=== PATIENT | female | born 1985 | race Caucasian/White ===

== ENCOUNTER 2025-01-08 00:08 | Emergency (ER) | payer OTHER, SELFPAY ==
--- OUTSIDE RECORDS SUMMARY | 2025-01-08 00:10 | XMS_ITS | Referral Summary ---
Author Organization [facility] Address [address] [place] [address] Care Team Providers Care Carton Folder Name Role Phone Lacy Erickson MD Primary Care Provider Encounters Date Type Department Care Team Description 01/01/2025 Results Follow-Up [facility] Primary Care [address] [place] [phone] Lacy Erickson MD 11/20/2024 Telephone [facility] Primary Care [address] [place] [phone] Lacy Erickson MD Forms Request from Last 3 Months Allergies No known active allergies Medications levonorgestreL (MIRENA) IUD 1 each by intrauterine route once 9 Active furosemide (LASIX) 20 mg tablet Take 1 tablet (20 mg total) by mouth daily as needed (swelling) 30 tablet 1 4 Active Additional Information Patient not taking.Reported on 06/19/2024 amLODIPine (NORVASC) 5 mg tablet Take 1 tablet (5 mg total) by mouth daily 90 tablet 1 4 Active Active Problems Problem Noted Date Diagnosed Date Hypertension, essential 06/11/2024 PFO (patent foramen ovale) 04/08/2019 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 Discussed diet and exercise Feels safe at home Discussed skin cancer prevention and screening: sees eyeglass frames inspector Check labs Vaccinations UTD Class 1 obesity due to exces s calories without serious comorbidity with body mass index (BMI) of 31.0 to 31.9 in adult 04/05/2021 High-risk 01/17/2012 12/11/19 24 12/05/2010 12/11/2023 Immunizations Immunization Administration Dates Next Due Influenza, Quadrivalent, Suzi l Culture-based MDCK, Preservative Free, Antibiotic Free, Intramuscular 08/12/2023 Influenza, Quadrivalent, Spl it, Preservative Free, Intramuscular 08/18/2022,10/03/2021,07/22/2020,08/19 Influenza, Trivalent, IM (MDV) 09/21/2012 Influenza, Trivalent, Preser vative Free, Intramuscular 07/03/2016 Influenza, Unspecified 07/15/2023 PPD TEST 04/05/2021 Tdap 08/02/2016,08/10/2012,05/24/2011 Social History Tobacco Use Types Packs/Day Years Used Date Smoking Tobacco: Never Cigarettes Smokeless Tobacco: Never Tobacco Cessation:Counseling Given: Not Answered AUDIT-C Answer Date Recorded Q1: How often do you have a drink containing alc ohol? Monthly or less 12/11/2023 Q2: How many drinks containi ng alcohol do you have on a typical day when you are drinking? 1 or 2 12/11/2023 Q3: How often do you have si x or more drinks on one occasion? Never 12/11/2023 PHQ-2 Answer Date Recorded PHQ-2 Total Score (If total score is 3 or more points, staff should administer the PHQ-9) 0 06/19/2024 Comments No Sex and Gender Information Value Date Recorded Sex Assigned at Not on file Legal Sex Female 11:10 PM PERSONAL ASSISTANT Gender Identity Female 03/29/2021 7:47 AM CDT Sexual Orientation Straight 03/29/2021 7: 47 AM CDT Last Filed Vital Signs Vital Sign Reading Time Taken Comments Blood Pressure 122/78 06/19/2024 10:38 AM CDT Pulse 56 06/19/2024 10:38 AM CDT Temperature 36.1 C (96.9 F) 06/19/2024 10:38 AM CDT Respiratory Rate 16 04/05/2021 8:34 AM CDT Oxygen Saturation 99% 06/19/2024 10:38 AM CDT Inhaled Oxygen Concentration - - Weight 98.4 kg (217 lb) 06/19/2024 10:38 AM CDT Height 175.3 cm (5' 9 ) 12/11/2023 3:41 PM PERSONAL ASSISTANT Body Mass Index 32.05 12/11/2023 3:41 PM PERSONAL ASSISTANT Plan of Treatment Not on file Procedures Procedure Name Priority Date/Time Associated Diagnosis Comments LIPID PANEL Routine 12/31/2024 12:42 PM CDT Routine general medical examination at a health care facility COMPREHENSIVE METABOLIC PANEL Routine 12/31/2024 12:42 PM CDT Routine general medical examination at a health care facility CBC WITH AUTO DIFFERENTIAL Routine 12/31/2024 12:42 PM CDT Routine general medical examination at a health care facility HM PAP SMEAR WITH HPV Routine 06/09/2024 from Last 3 Months or Most Recently Relevant to Health Maintenance Results * CBC with auto differential (12/31/2024 12:42 PM CDT) WBC 6.6 3.8 - 10.8 Thousand/u L [facility] RBC, POC 4.95 3.80 - 5.10 Million/uL [facility] Hgb 15.1 11.7 - 15.5 g/dL [facility] Hct 44.9 35.0 - 45.0 % [facility] MCV 90.7 80.0 - 100.0 fL [facility] MCH 30.5 27.0 - 33.0 pg [facility] MCHC 33.6 32.0 - 36.0 g/dL [facility] Comment: For adults, a slight decrease in the calculated MCHC value (in the range of 30 to 32 g/dL) is most likely not clinically significant; however, it should be interpreted with caution in correlation with other red cell parameters and the patient's clinical condition. Rdw 12.6 11.0 - 15.0 % [facility] Platelets 229 140 - 400 Thousand/u L [facility] MPV 11.6 7.5 - 12.5 fL [facility] Neutrophils, abs 4,039 1,500 - 7,800 cells/uL [facility] Lymphocytes, abs 1,934 850 - 3,900 cells/uL [facility] Monocyte abs 422 200 - 950 cells/uL [facility] Eosinophils, abs 152 15 - 500 cells/uL [facility] Basophils, abs 53 0 - 200 cells/uL [facility] Neutrophils 61.2 % [facility] Lymphocyte pct 29.3 % [facility] Monocytes 6.4 % [facility] Eosinophils 2.3 % [facility] Basophils 0.8 % [facility] Blood 12/31/2024 12:4 2 PM CDT 12/31/2024 12:42 PM CDT us Lacy Erickson MD LAB BLOOD ORD ERABLES Final Result [facility] [address] [place] [phone] * (ABNORMAL) Lipid panel (12/31/2024 12:42 PM CDT) [facility] Cholesterol 185 <200 mg/dL [facility] HDL 44(L) > OR = 50 mg/dL [facility] Triglycerides 126 <150 mg/dL [facility] LDL 117(H) mg/dL (calc) [facility] Comment: Reference range: <100 Desirable range <100 mg/dL for primary prevention; <70 mg/dL for patients with CHD or diabetic patients with > or = 2 CHD risk factors. LDL-C is now calculated using the Kiet-Peacock calculation, which is a validated novel method providing better accuracy than the Friedewald equation in the estimation of LDL-C. Kiet SS et al. ARIES. 2013;310(19): 9924-7096 (http://education.[employer]/faq/QVL583) Chol/HDL ratio 4.2 <5.0 (calc) [facility] Non-HDL, (LDL+VLDL) 141(H) <130 mg/dL (calc) [facility] Comment: For patients with diabetes plus 1 major ASCVD risk factor, treating to a non-HDL-C goal of <100 mg/dL (LDL-C of <70 mg/dL) is considered a therapeutic option. Blood 12/31/2024 12:4 2 PM CDT 12/31/2024 12:42 PM CDT Lacy Erickson MD LAB BLOOD ORD ERABLES Final Result [facility] [address] [place] [address] * Comprehensive metabolic panel (12/31/2024 12:42 PM CDT) [facility] Glucose 83 65 - 99 mg/dL [facility] Comment: Fasting reference interval BUN 10 7 - 25 mg/dL [facility] Creatinine 0.84 0.50 - 0.97 mg/dL [facility] eGFR 91 > OR = 60 mL/min/1.7 3m2 [facility] BUN/creat ratio SEE NOTE: 6 - 22 (calc) [facility] Comment: Not Reported: BUN and Creatinine are within reference range. Sodium 139 135 - 146 mmol/L [facility] Potassium, pl 3.8 3.5 - 5.3 mmol/L [facility] Chloride 101 98 - 110 mmol/L [facility] CO2 30 20 - 32 mmol/L [facility] Calcium 9.7 8.6 - 10.2 mg/dL [facility] Protein, sr 7.0 6.1 - 8.1 g/dL [facility] Albumin 4.5 3.6 - 5.1 g/dL [facility] GLOBULIN 2.5 1.9 - 3.7 g/dL (calc) [facility] Alb/glob ratio 1.8 1.0 - 2.5 (calc) [facility] Bilirubin, total 0.7 0.2 - 1.2 mg/dL [facility] Alk phos 84 31 - 125 U/L [facility] AST 20 10 - 30 U/L [facility] ALT (SGPT) 21 6 - 29 U/L [facility] Blood 12/31/2024 12:4 2 PM CDT 12/31/2024 12:42 PM CDT Lacy Erickson MD LAB BLOOD ORD ERABLES Final Result [facility] [address] [place] [address] * HM PAP SMEAR WITH HPV (06/09/2024) Scribed Pap Smear w/HPV Normal Historical Provider HEALTH MAINTENANCE Final Result from Last 3 Months or Most Recently Relevant to Health Maintenance Insurance [place] [facility] CHOICE PLUS Care Teams Carton Folder Relationship Specialty Start Date End Date Lacy Erickson MD [address] [place] [phone] PCP - General Internal Medicine 12/11/23
--- OUTSIDE RECORDS SUMMARY | 2025-01-08 00:11 | XMS_ITS | Encounter Summary ---
Author Organization [facility] Address [address] [place] [address] Care Team Providers Care Purchasing Coordinator Name Role Phone Lacy Erickson MD Primary Care Provider Encounter Details Date Type Department Care Team (Late st Contact Info) Description 01/01/2025 Results Follow-Up [facility] Primary Care [address] [place] [phone] Lacy Erickson MD [address] [place] [phone] Social History Tobacco Use Types Packs/Day Years Used Date Smoking Tobacco: Never Cigarettes Smokeless Tobacco: Never AUDIT-C Answer Date Recorded Q1: How often [...] on file Legal Sex Female 11:10 PM CONTACT L[employer] BUFFER Gender Identity Female 03/29/2021 7:47 AM CDT Sexual Orientation Straight 03/29/2021 7: 47 AM CDT documented as of this encounter Plan of Treatment Not on file documented as of this encounter Visit Diagnoses Not on filedocumented in this encounter Care Teams Purchasing Coordinator Relationship Specialty Start Date End Date Lacy Erickson MD [address] [place] [phone] PCP - General Internal Medicine 12/11/23 documented as of this encounter
--- OUTSIDE RECORDS SUMMARY | 2025-01-08 00:11 | XMS_ITS | Encounter Summary ---
Author Organization [facility] Address [address] [place] [address] Care Team Providers Care Trader Name Role Phone Unavailable Primary Care Provider Unavailabl e Encounter Details Date Type Department Care Team (Late st Contact Info) Description 04/08/2021 Lab Requisition [facility] DermPath Lab [address] [facility] [place] [phone] Mark Butler MD [address] [place] [address] Social History Tobacco Use Types Packs/Day Years Used Date Smoking Tobacco: Never Assessed Sex and Gender Information Value Date Recorded Sex Assigned at Not on file Gender Identity Not on file Sexual Orientation Not on file documented as of this encounter Plan of Treatment Not on file documented as of this encounter Procedures Procedure Name Priority Date/Time Associated Diagnosis Comments DERMATOPATHOLOGY Routine 04/06/2021 3:33 AM CDT documented in this encounter Results * DERMATOPATHOLOGY (04/06/2021 3:33 AM CDT) Case Report Dermatopathology Report Case: [id number] Authorizing Provider: Mark Butler MD Collected: 04/06/2021 03:33 AM Ordering Location: [facility] DermPath Lab Received: 04/08/2021 06:07 AM Pathologist: Bettina Caraballo MD Specimens: A) - Skin, left bahai B) - Skin, left mid back C) - Skin, mid back 9:24 AM CDT DERMATOPATHOLOGY LABORATORY Final Diagnosis Specimen A. SKIN, left bahai: INTRADERMAL MELANOCYTIC NEVUS (D22.39) Specimen B. SKIN, left mid back: COMPOUND MELANOCYTIC PROLIFERATION; PRESENT AT MARGIN (D48.5) (see microscopic description and comment). Specimen C. SKIN, mid back: COMPOUND NEVUS WITH CONGENITAL FEATURES (D22.5) 9:24 AM [facility] DERMATOPATHOLOGY LABORATORY Clinical History A: Nevus R/O atypic. Path # [id number]. B: Nevus vs MM. Path # [id number]. C: Nevus vs MM. Path # [id number]. 9:24 AM [facility] DERMATOPATHOLOGY LABORATORY Gross Description Specimen A: Received is one formalin filled container labeled with the patient's name and designated left bahai. The specimen consists of a shave biopsy measuring 1n4v4yp. Jar 0. Specimen B: Received is one formalin filled container labeled with the patient's name and designated left mid back. The specimen consists of a shave biopsy measuring 1p6v0vd. Jar 0. Specimen C: Received is one formalin filled container labeled with the patient's name and designated mid back. The specimen consists of a shave biopsy measuring 0d9r4cc. Jar 0. 9:24 AM [facility] DERMATOPATHOLOGY LABORATORY Microscopic Description Specimen A. SKIN, left bahai: There are nests of cytologically bland melanocytes within the dermis that mature with depth. Specimen B. SKIN, left mid back: Sections show a compound melanocytic proliferation. There is a lentiginous proliferation of melanocytes between irregular nests. Scattered melanocytes show evidence of upward migration within the epidermis. In the dermis there are irregular nests of melanocytes. Melanocytes are highlighted with immunohistochemical staining for MART-1/Melan-A. This lesion is present at the margin of the specimen. COMMENT: Because this lesion is present at the margin of the specimen, symmetry and circumscription cannot be evaluated. Therefore, a complete but conservative re-excision is recommended to evaluate this lesion in its entirety. This case was also reviewed by Dr. Mariela Marie, who agrees. Specimen C. SKIN, mid back: There are nests of melanocytes at the dermal-epidermal junction and within the dermis. Some melanocytes are splayed between collagen bundles and are localized around adnexal structures. 9:24 AM T DERMATOPATHOLOGY LABORATORY Disclaimer An external and internal positive and negative controls are appropriate for the histochemical, immunohistochemical and immunofluorescence stain(s) in this case (if any), except where stated explicitly. The performance characteristics of the stain(s) cited in this report were developed and its performance characteristic determined by the Dermatopathology Laboratory at [facility], directed by Dr. Bin Tiwari. These tests need not be, and therefore are not, approved by the [place] Food and Drug Administration. The tests are used for clinical purposes. Billing Codes Specimen Charges Stain Charges 63514 82036 51324 1 1 1 68516 1 1 9:24 AM CDT DERMATOPATHOLOGY LABORATORY Embedded Images 1 9:24 AM CDT DERMATOPATHOLOGY LABORATORY Pathology/Cytology TISSUE SPECIMEN FROM SKIN / Unknown 04/06/2021 3:33 AM CDT 04/08/2021 6:07 AM CDT Miscellaneous samples (specimen) TISSUE SPECIMEN FROM SKIN / Unknown 04/06/2021 3:33 AM CDT 04/08/2021 6:07 AM CDT Miscellaneous samples (specimen) TISSUE SPECIMEN FROM SKIN / Unknown 04/06/2021 3:33 AM CDT 04/08/2021 6:07 AM CDT Mark Butler MD LAB - PATHOLOGY/CYTO LOGY ORDERABLES DERMATOPATHOLOGY LABORATORY [facility] - Department of Dermatology [address] [phone] documented in this encounter Visit Diagnoses Not on filedocumented in this encounter
--- OUTSIDE RECORDS SUMMARY | 2025-01-08 00:11 | XMS_ITS | Encounter Summary ---
Author Organization [facility] Address [address] [place] [address] Care Team Providers Care Radiology Interventional Physician Name Role Phone Unavailable Primary Care Provider Unavailabl e Encounter Details Date Type Department Care Team (Late st Contact Info) Description 05/28/2021 Lab Requisition [facility] DermPath Lab [address] [facility] [place] [phone] Mark Butler MD [address] [facility] [place] [address] Social History Tobacco Use Types [...] Priority Date/Time Associated Diagnosis Comments DERMATOPATHOLOGY Routine 05/26/2021 3:33 AM CDT documented in this encounter Results * DERMATOPATHOLOGY (05/26/2021 3:33 AM CDT) Case Report Dermatopathology Report Case: [id number] Authorizing Provider: Mark Butler MD Collected: 05/26/2021 03:33 AM Ordering Location: [facility] DermPath Lab Received: 05/28/2021 02:11 PM Pathologist: Chi Tiwari MD Specimen: Skin, left mid back 3:35 PM CDT DERMATOPATHOLOGY LABORATORY Amended Report Clerical error, change in diagnosis text. 3:35 PM CDT DERMATOPATHOLOGY LABORATORY Final Diagnosis Specimen A. SKIN, left mid back: DERMAL SCAR RESIDUAL MELANOCYTIC PROLIFERATION NOT IDENTIFIED (L90.5) 3:35 PM CDT DERMATOPATHOLOGY LABORATORY Amendment electronically signed by Chi Tiwari MD on 06/02/2021 at 3:35 PM Clinical History Bx proven CMPD, Melan proliferation. Check margins. Path# [id number] 3:35 PM CDT DERMATOPATHOLOGY LABORATORY Gross Description Specimen A: Received is one formalin filled container labeled with the patient's name and designated left mid back. The specimen consists of a non-oriented ellipse of skin measuring [id number]. The epidermal surface consists of centrally located 3x3mm previous biopsy site. The margin is inked green. The 12 o'clock and 6 o'clock tips are submitted in cassette 1. The remainder of the ellipse is serially sectioned and submitted in cassette 2-3. Jar 0. 3:35 PM CDT DERMATOPATHOLOGY LABORATORY Microscopic Description Specimen A. SKIN, left mid back: There are fibroblasts and collagen bundles oriented parallel to the skin surface. There are elongated blood vessels, some of which are oriented perpendicular to the skin surface. No residual melanocytic proliferation is identified. 3:35 PM CDT DERMATOPATHOLOGY LABORATORY Disclaimer An external and internal positive and negative controls are appropriate for the histochemical, immunohistochemical and immunofluorescence stain(s) in this case (if any), except where stated explicitly. The performance characteristics of the stain(s) cited in this report were developed and its performance characteristic determined by the Dermatopathology Laboratory at [facility], directed by Dr. Bin Tiwari. These tests need not be, and therefore are not, approved by the [place] Food and Drug Administration. The tests are used for clinical purposes. Billing Codes Specimen Charges Stain Charges 79531 1 3:35 PM CDT DERMATOPATHOLOGY LABORATORY Embedded Images 3:35 PM CDT DERMATOPATHOLOGY LABORATORY Pathology/Cytolo gy TISSUE SPECIMEN FROM SKIN / Unknown 05/26/2021 3:33 AM CDT 05/28/2021 2:11 PM CDT Mark Butler MD LAB - PATHOLOGY/CYTO LOGY ORDERABLES DERMATOPATHOLOGY LABORATORY [facility] - Department of Dermatology [address] [phone] documented in this encounter Visit Diagnoses Not on filedocumented in this encounter
--- OUTSIDE RECORDS SUMMARY | 2025-01-08 00:11 | XMS_ITS | Clinical Summary ---
Author Organization [facility] Address [address] [place] [address] Care Team Providers Care Electro Optical Engineer Name Role Phone Lacy Erickson MD Primary Care Provider Allergies No known active allergies Medications levonorgestreL [...] Discussed skin cancer prevention and screening: sees pasta maker Check labs Vaccinations UTD Class 1 obesity due to exces s calories without serious comorbidity with body mass index (BMI) of 31.0 to 31.9 in adult 04/05/2021 High-risk 01/17/2012 12/11/19 24 12/05/2010 12/11/2023 Encounters Date Type Department Care Team Description 01/01/2025 Results Follow-Up [facility] Medical [facility] Primary Care [address] [place] [phone] Lacy Erickson MD 11/20/2024 Telephone [facility] Primary Care [address] [place] [phone] Lacy Erickson MD Forms Request from Last 3 Months Immunizations Immunization Administration Dates Next Due Influenza, Quadrivalent, Suzi l Culture-based MDCK, Preservative Free, Antibiotic Free, Intramuscular 08/12/2023 Influenza, Quadrivalent, Spl it, Preservative Free, Intramuscular 08/18/2022,10/03/2021,07/22/2020,08/19 Influenza, Trivalent, IM (MDV) 09/21/2012 Influenza, Trivalent, Preser vative Free, Intramuscular 07/03/2016 Influenza, Unspecified 07/15/2023 PPD TEST 04/05/2021 Tdap 08/02/2016,08/10/2012,05/24/2011 Surgical History Surgery Date Site/Laterality Comments ASD REPAIR Repair Of Congenital Atrial Septal Defect - (Added by TW Conv) Medical History Medical History Date Comments Tinnitus Environmental and seasonal allergies HTN (hypertension) Family History Medical History Relation Name Comments Hyperlipidemia Father Wong Family histor y of hypercholesterolemia - (Added by TW Conv) Hypertension Father Wong Family history of hypertension - (Added by TW Conv) Leukemia Maternal Grandfather Hyperlipidemia Mother Xiomara Family histor y of hypercholesterolemia - (Added by TW Conv) Hypertension Mother Xiomara Family history of hypertension - (Added by TW Conv) Throat cancer Paternal Grandfather Kidney cancer Paternal Grandmother Relation Name Status Comments Brother Alive Father Wong Alive Maternal Grandfather Maternal Grandmother Alive Mother Xiomara Alive Other brother Alive Paternal Grandfather Paternal Grandmother Sister Alive Social History Tobacco Use Types Packs/Day Years [...] on file Legal Sex Female 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 Gender Identity Female 03/29/2021 7:47 AM CDT Sexual Orientation Straight 03/29/2021 7: 47 AM CDT Obstetrics History Last Filed Vital Signs Vital Sign Reading [...] cm (5' 9 ) 12/11/2023 3:41 PM BROACHING MACHINE REPAIRER Body Mass Index 32.05 12/11/2023 3:41 PM BROACHING MACHINE REPAIRER Plan of Treatment Health Maintenance Due Date Last Done Comments Hepatitis C Screening 1986 Hepatitis B Screening 2004 Covid-19 Vaccine ( season) 2024 08/27/2021, 12/10/2020, 11/02/2020 Influenza Vaccine (#1) 2024 3, 07/15/2023, 08/18/2022, Additional history exists Regular Well Visit/Exam 18-64 12/11/2024 12/11/2023, 04/05/2021 Depression Screening 06/19/2025 06/19/2024, 12/11/2023, 12/11/2023, Additional history exists DTaP/Tdap/Td Vaccine (4 - Td or Tdap) 08/02/2026 08/02/2016, 08/10/2012, 05/24/2011 Cervical Cancer Screening 06/09/2029 06/09/2024 HPV Vaccines Aged Out No longer eligi ble based on patient's age to complete this topic Pneumococcal vaccine <65 Aged Out No longer eligible based on patient's age to complete this topic Varicella Vaccines Discontinued Procedures Procedure Name Priority Date/Time Associated Diagnosis Comments LIPID PANEL Routine 12/31/2024 12:42 PM CDT Routine general medical examination at a health care facility COMPREHENSIVE METABOLIC PANEL Routine 12/31/2024 12:42 PM CDT Routine general medical examination at a [facility] facility CBC WITH AUTO DIFFERENTIAL Routine 12/31/2024 12:42 PM CDT Routine general medical examination at a [facility] facility HM PAP SMEAR WITH HPV [...] BLOOD ORD ERABLES Final Result [facility] [address] [facility] [place] [address] * (ABNORMAL) Lipid panel (12/31/2024 12:42 PM CDT) Pathologist [facility] Cholesterol 185 <200 mg/dL [facility] [...] factors. LDL-C is now calculated using the Geovanny calculation, which is a validated novel method providing better accuracy than the Friedewald equation in the estimation of LDL-C. Kiet EDWARDS et al. ARIES. 2013;310(19): 6191-1231 (http://education.Quick Key.studentSN/faq/OBT792) Chol/HDL ratio 4.2 <5.0 (calc) [facility] [...] LAB BLOOD ORD ERABLES Final Result [facility] [address] [place] [address] * Comprehensive metabolic panel (12/31/2024 12:42 PM CDT) [facility] Glucose 83 65 - 99 mg/dL [facility] [...] BLOOD ORD ERABLES Final Result [facility] [address] [place] [address] * HM PAP SMEAR WITH HPV (06/09/2024) Scribed Pap Smear w/HPV Normal Historical Provider HEALTH MAINTENANCE Final Result from Last 3 Months or Most Recently Relevant to Health Maintenance Insurance [place] [address] CHOICE PLUS Care Teams Electro Optical Engineer Relationship Specialty Start Date End Date Lacy Erickson MD [address] [place] [phone] PCP - General Internal Medicine 12/11/23
--- OUTSIDE RECORDS SUMMARY | 2025-01-08 00:11 | XMS_ITS | Clinical Summary ---
Author Organization [facility] Address [address] [place] [address] Care Team Providers Care Visual Stylist Name Role Phone Unavailable Primary Care Provider Unavailabl e Allergies No known active allergies Medications No known medications Active Problems No known active problems Family History Medical History Relation Comments Diabetes Brother diet controlled Hypertension Father Stroke Maternal Grandfather stroke vers us MA Stroke Maternal Grandmother leukemia Maternal Grandmother Hypertension Mother Cancer Paternal Grandfather Throat Heart Attack Paternal Grandfather Stroke Paternal Grandfather renal cancer Paternal Grandmother Relation Status Comments Brother Father Maternal Grandfather Maternal Grandmother Mother Paternal Grandfather Paternal Grandmother Social History Tobacco Use Types Packs/Day Years Used Date Smoking Tobacco: Never Smokeless Tobacco: Never Alcohol Use Standard Drinks/Week Comments Yes 0 (1 standard drink = 0.6 oz pur e alcohol) once a week, beer Comments Unknown Sex and Gender Information Value Date Recorded Sex Assigned at Not on file Legal Sex Female 8:26 PM CDT Gender Identity Not on file Sexual Orientation Not on file Last Filed Vital Signs Vital Sign Reading Time Taken Comments Blood Pressure 100/70 05/16/2019 7:51 AM CDT Pulse 62 05/16/2019 7:51 AM CDT Temperature 36.7 C (98 F) 05/16/2019 7:51 AM CDT Respiratory Rate 20 05/16/2019 7:51 AM CDT Oxygen Saturation 96% 05/16/2019 7:51 AM CDT Inhaled Oxygen Concentration - - Weight 93.9 kg (207 lb) 05/16/2019 7:51 AM CDT Height 177.8 cm (5' 10 ) 05/16/2019 7:51 AM CDT Body Mass Index 29.7 05/16/2019 7:51 AM CDT Plan of Treatment Health Maintenance Due Date Last Done Comments Hepatitis C 2004 DTaP, Tdap and Td Vaccines ( 1 - Tdap) 2005 Hepatitis B Vaccines (1 of 3 - 19+ 3-dose series) 2005 Cervical Cancer Screening Pa p with HPV Testing (Age 30 to 64) Every 5 Years 2016 Annual Physical 05/16/2020 05/16/2019 Cervical Cancer Screening Pa p Smear (Age 30 to 64) Every 3 Years 02/25/2022 02/25/2019 Cervical Cancer Screening with HPV 02/25/2022 COVID-19 Vaccine ( - 2023-2 5 season) 2024 Influenza Adult (#1) 2024 HPV Vaccines Aged Out No longer eligi ble based on patient's age to complete this topic Meningococcal B Vaccine Aged Out No l onger eligible based on patient's age to complete this topic Meningococcal Vaccine Aged Out No ivon elian eligible based on patient's age to complete this topic Pneumococcal Vaccine: Pediat rics (0 to 5 Years) and At-Risk Patients (6 to 64 Years) Aged Out No longer eligi ble based on patient's age to complete this topic RSV Immunizations Under 20 Months Aged Out No longer eligible based on patient's age to complete this topic Procedures Procedure Name Priority Date/Time Associated Diagnosis Comments OUTSIDE CYTOPATH CERV/VAG INTERPRET (PAP) (SCAN ORDER) 02/25/2019 from Last 3 Months or Most Recently Relevant to Health Maintenance Results * OUTSIDE CYTOPATH CERV/VAG INTERPRET (PAP) (02/25/2019) 02/25/2019 Narrative 02/25/2019 Ordered by an unspecified provider. us Documents Scanned SCANNING Final Result from Last 3 Months or Most Recently Relevant to Health Maintenance Insurance [facility]
--- OUTSIDE RECORDS SUMMARY | 2025-01-08 00:11 | XMS_ITS | Clinical Summary ---
Author Organization [facility] Address [address] [place] [address] Care Team Providers Care Felt Hat Pouncing Operator Hand Name Role Phone Unavailable Primary Care Provider Unavailabl e Source Comments [facility],non-owned Affiliates and Associated Physician Practices is amultiple site organization consisting of ambulatory clinics and hospital sitesin [place], [place], [place] and [place]. This disclosure is being madepursuant to the Care Everywhere program and may not contain all information available regarding this patient. Last updated 18.[facility] Social History Tobacco Use Types Packs/Day Years Used Date Smoking Tobacco: Never Assessed Sex and Gender Information Value Date Recorded Sex Assigned at Not on file Gender Identity Not on file Sexual Orientation Not on file Plan of Treatment Health Maintenance Due Date Last Done Comments PAP SMEAR 1986 HIV SCREENING 2001 HEPATITIS C SCREENING 03/15/2004 DTAP/TDAP/TD VACCINES (1 - Tdap) 2005 HEPATITIS B VACCINE (1 of 3 - 19+ 3-dose series) 2005 COVID-19 VACCINE ( - 2023-2 5 season) 2024 INFLUENZA VACCINE (#1) 2024 DEPRESSION SCREENING 10/15/2024 ZOSTER VACCINE (1 of 2) 2036 HIB VACCINE Aged Out No longer eligi ble based on patient's age to complete this topic HPV VACCINE Aged Out No longer eligi ble based on patient's age to complete this topic MENINGOCOCCAL (Group B) VACC INE SHARED DECISION-MAKING Aged Out No longer eligibl e based on patient's age to complete this topic MENINGOCOCCAL GROUPS A/C/Y/W VACCINE Aged Out No longer eligible b ased on patient's age to complete this topic PNEUMOCOCCAL VACCINE Aged Out No long er eligible based on patient's age to complete this topic
[2025-01-08 00:12] VITALS: BP 155/98; PULSE 101; RESP 20; TEMP 36.8; O2SAT 100
[2025-01-08 00:22] VITALS: BP 143/98; PULSE 100; RESP 18; O2SAT 100
--- NOTE | 2025-01-08 01:01 | ED_ITS ---
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 Patient states the pain in her joints started slightly in her ankles and now has progressed to her wrists, hands and about senior care up her bilateral forearms. She states the pain is worse in her right wrist joint and right hand with associated edema. She denies injury trauma. States she has never had symptoms like this before. She describes joint pain as cramping and achy. She denies recent illnesses, chest pain or shortness of breath, IV drug use, fever, N/V/D, abdominal pain, sore throat, injury or trauma. She endorses a small rash to the volar aspect of her right wrist but otherwise denies rashes. Denies recent insect or tick bites, recent travel. She does note that she picked her niece up from school about a week ago who had a fever, otherwise no known recent sick contacts. Denies hx of autoimmune disease. Denies possibility of STDs. <Rivka Caal PA-C - Last Filed: 01/08/25 03:08> Related Data Allergies/adverse reactions: Allergies Allergy/AdvReac Type Severity Reaction Status Date / Time No Known Allergies Allergy Verified 01/08/25 00:24 <Rivka Caal PA-C - Last Filed: 01/08/25 03:08> Review of Systems 2 Review of Systems: All systems reviewed & are unremarkable except as noted in HPI and below <THAI Jerry Last Filed: 01/08/25 03:08> Exam 2 Narrative: GENERAL: Well-appearing, well-nourished, and in no acute distress. HEAD: Normocephalic, atraumatic. EYES: EOMI. ENT: Nares clear, no rhinorrhea or epistaxis. Mucous membranes moist. NECK: Supple. CHEST: Clear to auscultation. No respiratory distress. HEART: Regular rate and rhythm. No murmur heard. Normal peripheral pulses. ABDOMEN: Soft, nontender, nondistended, normal active bowel sounds. EXTREMITIES: RUE: Approximately 3 cm of faint erythema to the volar aspect of the distal ulna a small macules, slight edema noted to the wrist, tenderness over the thenar eminence, full active and passive range of motion of wrist in all fingers, cap refill less than 2, sensation intact, radial pulse 2 +, radial, median and ulnar nerves are intact. No tenderness to left wrist or bilateral ankles, radial pulses 2+ and DP pulses 2+. SKIN: See extremity exam, no other rashes NEURO: No focal deficits. Alert and oriented x3 <Rivka Caal PA-C - Last Filed: 01/08/25 03:08> Course CONDUCTOR SYMPHONIC ORCHESTRA/PA Physician Supervision PA consulted me to discuss patient's case. It seems a thorough history with extensive questioning has taken place and etiology remains unclear. Patient otherwise hemodynamically stable. No acute urgent egiology/reversible issue identified. Reasonable to discharge with follow up. Patient may require an immunology referral in the future. I did not personally assess this patient and was not directly involved in their care except as collegue consult. <Tia Petty MD - Last Filed: 01/08/25 10:15> Vital Signs Vital signs: Vital Signs Temperature 98.2 F 01/08/25 00:12 Pulse Rate 101 H 01/08/25 00:12 Respiratory Rate 20 01/08/25 00:12 Blood Pressure 155/98 H 01/08/25 00:12 Pulse Oximetry 100 01/08/25 00:12 Oxygen Delivery Room Air 01/08/25 00:12 Temperature 98.2 F 01/08/25 00:12 Pulse Rate 100 01/08/25 00:22 Respiratory Rate 18 01/08/25 00:22 Blood Pressure 143/98 H 01/08/25 00:22 Pulse Oximetry 100 01/08/25 00:22 Oxygen Delivery Room Air 01/08/25 00:12 <Rivka Caal PA-C - Last Filed: 01/08/25 03:08> Vital Signs Temperature 98.2 F 01/08/25 00:12 Pulse Rate 101 H 01/08/25 00:12 Respiratory Rate 20 01/08/25 00:12 Blood Pressure 155/98 H 01/08/25 00:12 Pulse Oximetry 100 01/08/25 00:12 Oxygen Delivery Room Air 01/08/25 00:12 Temperature 98.2 F 01/08/25 00:12 Pulse Rate 100 01/08/25 00:22 Respiratory Rate 18 01/08/25 00:22 Blood Pressure 143/98 H 01/08/25 00:22 Pulse Oximetry 100 01/08/25 00:22 Oxygen Delivery Room Air 01/08/25 00:12 <Tia Petty MD - Last Filed: 01/08/25 10:15> Medical Decision Making MDM Narrative Medical decision making narrative: 39-year-old female presents emergency department for polyarthralgia that started this afternoon/evening. Patient reporting cramping and achiness to her bilateral wrists and ankles, predominantly over the right wrist. Vitals with elevated blood pressure and mild tachycardia 100, otherwise unremarkable. Patient is afebrile and nontoxic appearing. Exam is significant for the above. Differential diagnosis includes Lyme disease, reactive streptococcal arthritis, gonococcal arthritis, rheumatoid arthritis, rheumatic fever, as SLE, viral arthritis and other CBC without leukocytosis. Chemistries do show mild transaminitis with an AST of 46 and ALT of 68, normal alk-phos and bilirubin. UA is unremarkable. negative. Viral swabs and strep were negative. CK within normal limits. ESR and CRP within normal limits. Tick borne panel and HBV are pending. Patient updated on results. Uncertain of the cause of polyarthralgia at this time. Will treat with NSAIDs and her follow closely with PCP. Discussed she may need referral to rheumatology for further evaluation. Return precautions provided. She is agreeable with the plan verbalized understanding. Discharged in stable condition. <Rivka Caal PA-C - Last Filed: 01/08/25 03:08> Vital Signs Vital Signs: Vital Signs Temperature 98.2 F 01/08/25 00:12 Pulse Rate 101 H 01/08/25 00:12 Respiratory Rate 20 01/08/25 00:12 Blood Pressure 155/98 H 01/08/25 00:12 Pulse Oximetry 100 01/08/25 00:12 Oxygen Delivery Room Air 01/08/25 00:12 Temperature 98.2 F 01/08/25 00:12 Pulse Rate 100 01/08/25 00:22 Respiratory Rate 18 01/08/25 00:22 Blood Pressure 143/98 H 01/08/25 00:22 Pulse Oximetry 100 01/08/25 00:22 Oxygen Delivery Room Air 01/08/25 00:12 <Rivka Caal PA-C - Last Filed: 01/08/25 03:08> Vital Signs Temperature 98.2 F 01/08/25 00:12 Pulse Rate 101 H 01/08/25 00:12 Respiratory Rate 20 01/08/25 00:12 Blood Pressure 155/98 H 01/08/25 00:12 Pulse Oximetry 100 01/08/25 00:12 Oxygen Delivery Room Air 01/08/25 00:12 Temperature 98.2 F 01/08/25 00:12 Pulse Rate 100 01/08/25 00:22 Respiratory Rate 18 01/08/25 00:22 Blood Pressure 143/98 H 01/08/25 00:22 Pulse Oximetry 100 01/08/25 00:22 Oxygen Delivery Room Air 01/08/25 00:12 <Tia Petty MD - Last Filed: 01/08/25 10:15> Lab Data Result diagrams: 01/08/25 01:47 01/08/25 01:47 <Rivka Caal PA-C - Last Filed: 01/08/25 03:08> Labs: Lab Results 01/08/25 01/08/25 Range/Units 01:47 01:53 WBC 9.4 (4.5-10.0) K/mm3 RBC 4.63 (4.2-5.4) M/mm3 Hgb 13.9 (12.0-15.0) g/dL Hct 40.4 (37.0-47.0) % MCV 87.3 (80-100) fl MCH 30.0 (26-34) pg MCHC 34.4 (32-36) g/dl RDW 12.1 (11.5-14.5) % Plt Count 213 (150-375) k/mm3 MPV 10.5 H (7.4-10.4) fl Immature Gran % (Auto) 0.4 (0-0.5) % Neut % (Auto) 74.7 H (45.5-73.1) % Lymph % (Auto) 15.9 L (18.3-44.2) % [place] % (Auto) 8.4 (2.6-8.5) % Eos % (Auto) 0.1 (0-4.4) % Baso % (Auto) 0.5 (0.2-1.2) % Lymph # (Auto) 1.49 (0.9-3.2) K/mm3 [place] # (Auto) 0.8 H (0.1-0.6) K/mm3 Eos # (Auto) 0.0 (0-0.3) K/mm3 Baso # (Auto) 0.1 (0.0-0.1) K/mm3 Abs Immat Gran (auto) 0.04 H (0.00-0.031) K/mm3 Absolute Neuts (auto) 7.0 H (1.3-6.7) K/mm3 Absolute Nucleated RBC 0.000 (0.0-0.012) K/mm3 Nucleated RBC % 0.0 (0.0-0.2) % ESR 15 (0-20) mm/hr Sodium 138 (137-145) mmol/L Potassium 4.1 (3.4-5.0) mmol/L Chloride 101 (98-107) mmol/L Carbon Dioxide 27 (22-30) mmol/L Anion Gap 10 (4-12) mmol/L BUN 12 (7-17) mg/dL Creatinine 0.83 (0.7-1.0) mg/dL Estim Creat Clear Calc 100 ml/min Estimated GFR > 60 (59 - ) Glucose 113 H (65-110) mg/dL Calcium 9.9 (8.4-10.2) mg/dL Total Bilirubin 0.4 (0.2-1.3) mg/dL AST 46 H (14-36) U/L ALT 68 H (6-35) U/L Alkaline Phosphatase 84 (38-126) U/L Total Creatine Kinase 105 (30-135) U/L C-Reactive Protein 1.1 (<1.0) mg/dL Total Protein 7.0 (6.3-8.2) g/dL Albumin 4.6 (3.5-5.1) g/dL Urine Color Yellow (Yellow) Urine Appearance Clear (Clear) Urine pH 7.0 (5.0-9.0) Ur Specific [place] 1.007 (1.001-1.035) Urine Protein Negative (Negative) mg/dL Urine Glucose (UA) Negative (Negative) mg/dL Urine Ketones Negative (Negative) mg/dL Ur Blood (Man) Negative (Negative) Urine Nitrate Negative (Negative) Urine Bilirubin Negative (Negative) Urine Urobilinogen 0.2 (<2.0) mg/dL Leukocyte Esterase Rfl Negative (Negative) KEYANA/UL POC Urine HCG, Qual Negative (Negative) A. phagocytophilum IgG Pending A. phagocytophilum IgM Pending A. phagocytophilum Cmmt Pending Babesia duncani WA1 IgG Pending Babesia microti IgG Ab Pending Babesia microti IgM Ab Pending Lyme Screen IgG & IgM Pending Lyme Disease Comment Pending Lyme Ab Comment Oth Sp Pending Ehrlichia IgG & IgM Pending E. chaffeensis IgG Com Pending E. chaffeensis IgM Intrp Pending Hepatitis A IgM Ab Negative (Negative) Hep Bs Antigen Negative (Negative) Hep B Core IgM Ab Negative (Negative) Hepatitis C Ab Screen Negative (Negative) Influenza A (RT-PCR) Negative (Negative) Influenza B (RT-PCR) Negative (Negative) RSV (RT-PCR) Negative (Negative) SARS-CoV-2 RNA (RT-PCR) Negative (Negative) Group A Strep (PCR) Not detected (Negative) Tick-borne Disease Ab Pending <Rivka Caal PA-C - Last Filed: 01/08/25 03:08> Lab Results 01/08/25 01/08/25 Range/Units 01:47 01:53 WBC 9.4 (4.5-10.0) K/mm3 RBC 4.63 (4.2-5.4) M/mm3 Hgb 13.9 (12.0-15.0) g/dL Hct 40.4 (37.0-47.0) % MCV 87.3 (80-100) fl MCH 30.0 (26-34) pg MCHC 34.4 (32-36) g/dl RDW 12.1 (11.5-14.5) % Plt Count 213 (150-375) k/mm3 MPV 10.5 H (7.4-10.4) fl Immature Gran % (Auto) 0.4 (0-0.5) % Neut % (Auto) 74.7 H (45.5-73.1) % Lymph % (Auto) 15.9 L (18.3-44.2) % [place] % (Auto) 8.4 (2.6-8.5) % Eos % (Auto) 0.1 (0-4.4) % Baso % (Auto) 0.5 (0.2-1.2) % Lymph # (Auto) 1.49 (0.9-3.2) K/mm3 [place] # (Auto) 0.8 H (0.1-0.6) K/mm3 Eos # (Auto) 0.0 (0-0.3) K/mm3 Baso # (Auto) 0.1 (0.0-0.1) K/mm3 Abs Immat Gran (auto) 0.04 H (0.00-0.031) K/mm3 Absolute Neuts (auto) 7.0 H (1.3-6.7) K/mm3 Absolute Nucleated RBC 0.000 (0.0-0.012) K/mm3 Nucleated RBC % 0.0 (0.0-0.2) % ESR 15 (0-20) mm/hr Sodium 138 (137-145) mmol/L Potassium 4.1 (3.4-5.0) mmol/L Chloride 101 (98-107) mmol/L Carbon Dioxide 27 (22-30) mmol/L Anion Gap 10 (4-12) mmol/L BUN 12 (7-17) mg/dL Creatinine 0.83 (0.7-1.0) mg/dL Estim Creat Clear Calc 100 ml/min Estimated GFR > 60 (59 - ) Glucose 113 H (65-110) mg/dL Calcium 9.9 (8.4-10.2) mg/dL Total Bilirubin 0.4 (0.2-1.3) mg/dL AST 46 H (14-36) U/L ALT 68 H (6-35) U/L Alkaline Phosphatase 84 (38-126) U/L Total Creatine Kinase 105 (30-135) U/L C-Reactive Protein 1.1 (<1.0) mg/dL Total Protein 7.0 (6.3-8.2) g/dL Albumin 4.6 (3.5-5.1) g/dL Urine Color Yellow (Yellow) Urine Appearance Clear (Clear) Urine pH 7.0 (5.0-9.0) Ur Specific [place] 1.007 (1.001-1.035) Urine Protein Negative (Negative) mg/dL Urine Glucose (UA) Negative (Negative) mg/dL Urine Ketones Negative (Negative) mg/dL Ur Blood (Man) Negative (Negative) Urine Nitrate Negative (Negative) Urine Bilirubin Negative (Negative) Urine Urobilinogen 0.2 (<2.0) mg/dL Leukocyte Esterase Rfl Negative (Negative) KEYANA/UL POC Urine HCG, Qual Negative (Negative) A. phagocytophilum IgG Pending A. phagocytophilum IgM Pending A. phagocytophilum Cmmt Pending Babesia duncani WA1 IgG Pending Babesia microti IgG Ab Pending Babesia microti IgM Ab Pending Lyme Screen IgG & IgM Pending Lyme Disease Comment Pending Lyme Ab Comment Oth Sp Pending Ehrlichia IgG & IgM Pending E. chaffeensis IgG Com Pending E. chaffeensis IgM Intrp Pending Hepatitis A IgM Ab Negative (Negative) Hep Bs Antigen Negative (Negative) Hep B Core IgM Ab Negative (Negative) Hepatitis C Ab Screen Negative (Negative) Influenza A (RT-PCR) Negative (Negative) Influenza B (RT-PCR) Negative (Negative) RSV (RT-PCR) Negative (Negative) SARS-CoV-2 RNA (RT-PCR) Negative (Negative) Group A Strep (PCR) Not detected (Negative) Tick-borne Disease Ab Pending <Tia Petty MD - Last Filed: 01/08/25 10:15> Discharge Plan Discharge Clinical Impression: Polyarthralgia, Transaminitis <Rivka Caal PA-C - Last Filed: 01/08/25 03:08> Patient Disposition: Home, Self-Care <Rivka Caal PA-C - Last Filed: 01/08/25 03:08> Condition: Stable <Rivka Caal PA-C - Last Filed: 01/08/25 03:08> Instructions: Antibiotic Form, Arthralgia (ED) <Rivka Caal PA-C - Last Filed: 01/08/25 03:08> Additional Instructions: You were evaluated in the emergency department for joint pain. Your workup here is reassuring other than elevation in your liver enzymes. Is uncertain what is causing her joint pain at this time may be secondary to a viral illness. Please take the naproxen as directed follow-up closely with her primary care provider. You may need to see a window assembler if your symptoms persist. Return to the emergency department if you develop a fever, chest pain or shortness of breath or other concerning symptoms. <Rivka Caal PA-C - Last Filed: 01/08/25 03:08> Patient Language: Romansh <Rivka Caal PA-C - Last Filed: 01/08/25 03:08> Prescriptions: New naproxen 500 mg tablet 500 mg PO BID PRN (Reason: pain) Qty: 20 0RF <Rivka Caal PA-C - Last Filed: 01/08/25 03:08> Follow-up/Referrals: UNKNOWN,DOCTOR [Primary Care Provider] - <Rivka Caal PA-C - Last Filed: 01/08/25 03:08>
[2025-01-08] MEDS: ACETAMINOPHEN 500 MG TABLET 1000 MG PO (01:27)
--- OUTSIDE RECORDS SUMMARY | 2025-01-08 01:30 | XMS_ITS | Referral Summary ---
Author Organization [facility] Address [address] [place] [address] Care Team Providers Care Bowling Alley Manager Name Role Phone Lacy Erickson MD Primary Care Provider Encounters Date Type Department Care Team Description 01/01/2025 Results Follow-Up [facility] Primary Care [address] [place] [phone] Lacy Erickson MD 11/20/2024 Telephone [facility] Primary Care [address] [place] [phone] Lacy Erickson MD Forms Request from [...] Discussed skin cancer prevention and screening: sees tool storage attendant Check labs Vaccinations UTD Class 1 obesity [...] on file Legal Sex Female 11:10 PM CLIENT OPERATIONS MANAGER Gender Identity Female 03/29/2021 7:47 AM CDT [...] cm (5' 9 ) 12/11/2023 3:41 PM CLIENT OPERATIONS MANAGER Body Mass Index 32.05 12/11/2023 3:41 PM CLIENT OPERATIONS MANAGER Plan of Treatment Not on file Procedures [...] ORD ERABLES Final Result [facility] [address] [place] [address] * (ABNORMAL) Lipid panel (12/31/2024 12:42 PM CDT) [facility] Cholesterol 185 <200 mg/dL [facility] [...] LDL-C. Kiet SS et al. ARIES. 2013;310(19): 8898-0324 (http://education.Bellstrike/faq/SJR170) Chol/HDL ratio 4.2 <5.0 (calc) [facility] [...] BLOOD ORD ERABLES Final Result [facility] [address] [place] [address] * Comprehensive metabolic panel (12/31/2024 12:42 PM CDT) [facility] Glucose 83 65 - 99 mg/dL [...] BLOOD ORD ERABLES Final Result [facility] [address] [place] [address] * HM PAP SMEAR WITH HPV (06/09/2024) Scribed Pap Smear w/HPV Normal Historical Provider HEALTH MAINTENANCE Final Result from Last 3 Months or Most Recently Relevant to Health Maintenance Insurance [place] [facility] CHOICE PLUS [facility] HMO/PPO Address: [facility] [id number] [place] [address] Care Teams Bowling Alley Manager Relationship Specialty Start Date End Date Lacy Erickson MD [address] [place] [phone] PCP - General Internal Medicine 12/11/23
--- OUTSIDE RECORDS SUMMARY | 2025-01-08 01:31 | XMS_ITS | Encounter Summary ---
Author Organization [facility] Address [address] [place] [address] Care Team Providers Care Coal Digger Name Role Phone Unavailable Primary Care Provider Unavailabl e Encounter Details Date Type Department Care Team (Late st Contact Info) Description 04/08/2021 Lab Requisition [facility] [address] [facility], [place] [id number] Mark Butler MD [address] [address] Social History Tobacco Use Types [...] AM CDT) Case Report Dermatopathology Report Case: [id number] Authorizing Provider: Mark Butler MD Collected: 04/06/2021 03:33 AM Ordering Location: [facility] Received: 04/08/2021 06:07 AM Pathologist: Bettina Caraballo MD Specimens: A) - Skin, left roman catholic B) - Skin, left mid back C) - Skin, mid back 9:24 AM CDT DERMATOPATHOLOGY LABORATORY Final Diagnosis Specimen A. SKIN, left roman catholic: INTRADERMAL MELANOCYTIC NEVUS (D22.39) Specimen B. SKIN, left mid back: COMPOUND MELANOCYTIC PROLIFERATION; PRESENT AT MARGIN (D48.5) (see microscopic description and comment). Specimen C. SKIN, mid back: COMPOUND NEVUS WITH CONGENITAL FEATURES (D22.5) 9:24 AM [facility][NOTE 3] DERMATOPATHOLOGY LABORATORY Clinical History A: Nevus R/O atypic. Path # [id number]. B: Nevus vs MM. Path # [id number]. C: Nevus vs MM. Path # [id number]. 9:24 AM [facility][NOTE 3] DERMATOPATHOLOGY LABORATORY Gross Description Specimen A: Received is one formalin filled container labeled with the patient's name and designated left roman catholic. The specimen consists of a shave biopsy measuring [id number]. Jar 0. Specimen B: Received is one formalin filled container labeled with the patient's name and designated left mid back. The specimen consists of a shave biopsy measuring [id number]. Jar 0. Specimen C: Received is one formalin filled container labeled with the patient's name and designated mid back. The specimen consists of a shave biopsy measuring [id number]. Jar 0. 9:24 AM [facility][NOTE 3] DERMATOPATHOLOGY LABORATORY Microscopic Description Specimen A. SKIN, left roman catholic: There are nests of cytologically bland melanocytes [...] characteristic determined by the Dermatopathology Laboratory at [facility], directed by Dr. Bin Tiwari. These tests need not be, and therefore are not, approved by the [place] Food and Drug Administration. The tests are used for clinical purposes. Billing Codes Specimen Charges Stain Charges 10964 00138 18420 1 1 1 53860 1 1 9:24 AM CDT DERMATOPATHOLOGY LABORATORY [...] LAB - PATHOLOGY/CYTO LOGY ORDERABLES DERMATOPATHOLOGY LABORATORY [facility] - Department of Dermatology [address], [address] [phone] documented in this encounter Visit Diagnoses Not on filedocumented in this encounter
--- OUTSIDE RECORDS SUMMARY | 2025-01-08 01:31 | XMS_ITS | Clinical Summary ---
Author Organization [facility] Address [address] [place] [address] Care Team Providers Care Autoclave Operator Name Role Phone Lacy Erickson MD Primary [...] Discussed skin cancer prevention and screening: sees correction warden Check labs Vaccinations UTD Class 1 obesity due to exces s calories without serious comorbidity with body mass index (BMI) of 31.0 to 31.9 in adult 04/05/2021 High-risk 01/17/2012 12/11/19 24 12/05/2010 12/11/2023 Encounters Date Type Department Care Team Description 01/01/2025 Results Follow-Up [facility] Primary Care [address] [place] [phone] Lacy Erickson MD 11/20/2024 Telephone [facility] Primary Care [address] [place] [phone] Lacy Erickson MD Forms Request from [...] on file Legal 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 Gender Identity Female 03/29/2021 7:47 AM CDT [...] cm (5' 9 ) 12/11/2023 3:41 PM MAINFRAME PROGRAMMER ANALYST Body Mass Index 32.05 12/11/2023 3:41 PM MAINFRAME PROGRAMMER ANALYST Plan of Treatment Health Maintenance Due Date [...] CDT Routine general medical examination at a [facility] care facility CBC WITH AUTO DIFFERENTIAL Routine 12/31/2024 12:42 PM CDT Routine general medical examination at a [facility] care facility HM PAP SMEAR WITH HPV [...] BLOOD ORD ERABLES Final Result [facility] [address] [facility] [place] [address] * (ABNORMAL) Lipid panel (12/31/2024 12:42 PM CDT) Pathologist [facility] Cholesterol 185 <200 mg/dL [facility] [...] LDL-C. Kiet EDWARDS et al. ARIES. 2013;310(19): 2248-7939 (http://education.mSchool.Zenoss/faq/TSW631) Chol/HDL ratio 4.2 <5.0 (calc) [facility] [...] LAB BLOOD ORD ERABLES Final Result [facility] [address] [place] [address] * Comprehensive metabolic panel (12/31/2024 12:42 PM CDT) [facility] Glucose 83 65 - 99 mg/dL [...] BLOOD ORD ERABLES Final Result [facility] [address] [place] [address] * HM PAP SMEAR WITH HPV (06/09/2024) Scribed Pap Smear w/HPV Normal Historical Provider HEALTH MAINTENANCE Final Result from Last 3 Months or Most Recently Relevant to Health Maintenance Insurance [place] [address] CHOICE PLUS Care Teams Autoclave Operator Relationship Specialty Start Date End Date Lacy Erickson MD [address] [place] [phone] PCP - General Internal Medicine 12/11/23
--- OUTSIDE RECORDS SUMMARY | 2025-01-08 01:31 | XMS_ITS | Encounter Summary ---
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
--- OUTSIDE RECORDS SUMMARY | 2025-01-08 01:31 | XMS_ITS | Encounter Summary ---
Author Organization [facility] Address [address] [facility] [place] [address] Care Team Providers Care Rod Buster Helper Name Role Phone Unavailable Primary Care Provider Unavailabl e Encounter Details Date Type Department Care Team (Late st Contact Info) Description 05/28/2021 Lab Requisition [facility] Derm[facility] Lab [address] [facility] [place] [phone] Mark Butler MD [address] [place] [address] Social History Tobacco Use Types [...] AM CDT) Case Report Dermatopathology Report Case: [id number] Authorizing Provider: Mark Butler MD Collected: 05/26/2021 03:33 AM Ordering Location: [facility] Received: 05/28/2021 02:11 PM [...] proven CMPD, Melan proliferation. Check margins. Path# [id number] 3:35 PM CDT DERMATOPATHOLOGY LABORATORY Gross Description Specimen A: Received is one formalin filled container labeled with the patient's name and designated left mid back. The specimen consists of a non-oriented ellipse of skin measuring [id number]. The epidermal surface consists of centrally located [...] characteristic determined by the Dermatopathology Laboratory at [facility], directed by Dr. Bin Tiwari. These tests need not be, and therefore are not, approved by the [place] Food and Drug Administration. The tests are used for clinical purposes. Billing Codes Specimen Charges Stain Charges 52636 1 3:35 PM CDT DERMATOPATHOLOGY LABORATORY Embedded Images 3:35 PM CDT DERMATOPATHOLOGY LABORATORY Pathology/Cytolo gy TISSUE SPECIMEN FROM SKIN / Unknown 05/26/2021 3:33 AM CDT 05/28/2021 2:11 PM CDT Mark Butler MD LAB - PATHOLOGY/CYTO LOGY ORDERABLES DERMATOPATHOLOGY LABORATORY [facility] - Department of Dermatology [address] [phone] documented in this encounter Visit Diagnoses Not on filedocumented in this encounter
--- OUTSIDE RECORDS SUMMARY | 2025-01-08 01:31 | XMS_ITS | Clinical Summary ---
Author Organization [facility] Address [address] [place] [address] Care Team Providers Care Saddle Stitching Machine Operator Name Role Phone Unavailable Primary Care Provider Unavailabl e Allergies No known active allergies Medications No known medications Active Problems No known active problems Family History Medical History Relation Comments Diabetes Brother diet controlled Hypertension Father Stroke Maternal Grandfather stroke vers us [place] Stroke Maternal Grandmother leukemia Maternal Grandmother Hypertension [...] Most Recently Relevant to Health Maintenance Insurance [facility]
--- OUTSIDE RECORDS SUMMARY | 2025-01-08 01:31 | XMS_ITS | Clinical Summary ---
Author Organization [facility] Address [address] [place] [address] Care Team Providers Care Care Aid Name Role Phone Unavailable Primary Care Provider Unavailabl e Source Comments [facility] [employer],non-owned Affiliates and Associated Physician Practices is amultiple site organization consisting of ambulatory clinics and hospital sitesin [place], [place], [place] and [place]. This disclosure is being madepursuant to the Care Everywhere program and may not contain all information available regarding this patient. Last updated 18.[facility] [employer] Social History Tobacco Use Types Packs/Day Years [...]
[2025-01-08 01:56] LABS: BEDSIDEPREGUCG Negative (Negative)
[2025-01-08 01:58] LABS: Basophils Absolute Auto 0.1 K/mm3 (0.0-0.1); Basophils Percent Auto 0.5 % (0.2-1.2); Eosinophils Percent Auto 0.1 % (0-4.4); Hematocrit 40.4 % (37.0-47.0); Hemoglobin 13.9 g/dL (12.0-15.0); Immature Granulocyte Absolute 0.04 K/mm3 (0.00-0.031); Immature Granulocyte Percent A 0.4 % (0-0.5); Lymphocytes Absolute Auto 1.49 K/mm3 (0.9-3.2); Lymphocytes Percent Auto 15.9 % (18.3-44.2); Mean Corpuscular HGB Conc 34.4 g/dl (32-36); Mean Corpuscular Volume 87.3 fl (80-100); Mean Platelet Volume 10.5 fl (7.4-10.4); Monocytes Absolute Auto 0.8 K/mm3 (0.1-0.6); Monocytes Percent Auto 8.4 % (2.6-8.5); Neutrophils Percent Auto 74.7 % (45.5-73.1); Platelet Count Result 213 k/mm3 (150-375); Red Blood Count 4.63 M/mm3 (4.2-5.4); Red Cell Distribution Width 12.1 % (11.5-14.5); White Blood Count 9.4 K/mm3 (4.5-10.0)
[2025-01-08 01:59] LABS: Add Urine Microscopic? NO; Appearance Urine Clear (Clear); Bilirubin Urine Negative (Negative); Blood Urine Negative (Negative); Color Urine Yellow (Yellow); Glucose Urine UA Negative (Negative); Ketones Urine Negative (Negative); Leukocyte Esterase Ur Negative LEU/UL (Negative); Nitrate Urine Negative (Negative); Protein Urine Negative (Negative); Specific Grav Ur 1.007 (1.001-1.035); Urobilinogen Urine 0.2 mg/dL (<2.0)
[2025-01-08 02:07] LABS: Alanine Aminotransferase 68 U/L (6-35); Albumin Level 4.6 g/dL (3.5-5.1); Alkaline Phosphatase 84 U/L (38-126); Anion Gap 10 mmol/L (4-12); Aspartate Amino Transferase 46 U/L (14-36); Bilirubin,Total 0.4 mg/dL (0.2-1.3); Blood Urea Nitrogen 12 mg/dL (7-17); Calcium 9.9 mg/dL (8.4-10.2); Carbon Dioxide 27 mmol/L (22-30); Chloride 101 mmol/L (98-107); Estimated CRCL calculation 100 ml/min; Estimated Glomerular Filt Rate > 60; Glucose 113 mg/dL (65-110); Potassium 4.1 mmol/L (3.4-5.0); Sodium 138 mmol/L (137-145)
[2025-01-08 02:08] LABS: Creatine Kinase 105 U/L (30-135)
[2025-01-08 02:23] LABS: Strep Group A RT-PCR NOT DETECTED (Negative)
[2025-01-08 02:34] LABS: Influenza A QL RT-PCR Negative (Negative); Influenza B QL RT-PCR Negative (Negative); RSV RNA, RT-PCR Negative (Negative); SARS-CoV-2 RNA PCR Negative (Negative)
[2025-01-08 02:42] LABS: Erythrocyte Sedimentation Rate 15 mm/hr (0-20)
[2025-01-08 02:58] LABS: Hepatitis B Surface Antigen Negative (Negative)
[2025-01-08 02:59] LABS: CRP 1.1 mg/dL (<1.0)
[2025-01-08 03:04] LABS: HAV RESULT Negative (Negative); Hepatitis B Core IgM Result Negative (Negative)
[2025-01-08 03:16] LABS: Hepatitis C Virus Antibody Negative (Negative)
[2025-01-08] MEDS: KETOROLAC 15 MG/ML VIAL (*BKC) IV PUSH (03:41)
[2025-01-10 23:19] LABS: Lyme AB Screen <0.90 INDEX
[2025-01-11 22:58] LABS: Babesia microti AB IgG <1:64 titer; Babesia microti AB IgM <1:20 titer
[2025-01-12 18:13] LABS: Babesia duncani (WA1) AB IgG <1:256
== END 2025-01-08 03:30 | disposition home or self-care (01) ==
PROVIDERS: Emergency Provider Physician Assistant
DX: M25.532 Pain in left wrist (principal); M25.531 Pain in right wrist; M25.542 Pain in joints of left hand; M25.541 Pain in joints of right hand; M25.572 Pain in left ankle and joints of left foot; M25.571 Pain in right ankle and joints of right foot; R74.01 Elevation of levels of liver transaminase levels; Z20.822 Contact with and (suspected) exposure to COVID-19; I10 Essential (primary) hypertension; Z87.74 Personal history of (corrected) congenital malformations of heart and circulatory system
CPT/HCPCS: 36415; 80053; 80074; 81003; 81025; 82550; 85025; 85652; 86140; 87637; 87651; 96374; 99284; A9270; J1885